=== PATIENT | female | born 1995 | race Caucasian/White ===

== ENCOUNTER 2018-06-21 16:36 | Observation (INO) | payer MEDICAID ==
[~2018-06-21] VITALS: Ht 165.1 cm; Wt 73.0 kg
[2018-06-21] MEDS ORDERED: FERR325T6 PO (17:14)
[2018-06-21] MEDS ORDERED: FOLI-43 PO (17:14)
[2018-06-21] MEDS ORDERED: PNV1TABL50 PO (17:14)
[2018-06-21] MEDS ORDERED: LACTATED RINGERS 1,000 ML IV SCH (17:49)
== END 2018-06-21 19:10 | disposition home or self-care (01) ==
LOC: 8 EST LDRP 16:36
PROVIDERS: ADMIT Obstetrics & Gynecology; ATTEND Obstetrics & Gynecology
DX: O26.893 Other specified pregnancy related conditions, third trimester (principal); R10.30 Lower abdominal pain, unspecified; Z3A.38 38 weeks gestation of pregnancy
CPT/HCPCS: G0378 ×2

== ENCOUNTER 2018-06-21 23:14 | Inpatient (IN) | payer MEDICAID ==
[~2018-06-21] VITALS: Ht 165.1 cm; Wt 73.0 kg
[~2018-06-21 23:14] MED LIST: FERR325T6 PO; FOLI-43 PO; PNV1TABL50 PO
[2018-06-22] MEDS: DEXT 5%/LACTATED RINGERS 1,000 ML IV SCH ×4 (00:01→09:40)
[2018-06-22] MEDS ORDERED: PENICILLIN G POTASSIUM 5MMU in DEXTROSE 5% WATER 100ML IV NR (00:30)
[2018-06-22] MEDS: BUTORPHANOL TARTRATE 2 MG/ML VIAL IV PRN ×3 (00:31→06:46)
[2018-06-22 01:55] LABS: BASOPHILS % 0.4 % (0.0-2.0); EOSINOPHILS % 0.3 % (0.0-5.0); HEMATOCRIT. 33.6 % (36.0-48.0); HEMOGLOBIN. 11.6 g/dL (12.0-16.0); LYMPHOCYTES % 14.3 % (20.0-50.0); MEAN CORPUSCULAR HEMOGLOBIN 28.5 pg (28.0-32.0); MEAN CORPUSCULAR VOLUME 82.7 fL (81.0-99.0); MEAN PLATELET VOLUME 10.3 fl (7.4-10.4); MONOCYTES % 6.5 % (2.0-8.0); NEUTROPHILS % 78.5 % (40.0-76.0); PLATELET 214 x1000/uL (130-400); RED BLOOD CELL COUNT 4.06 mill/uL (4.2-5.4); RED CELL DISTRIBUTION WIDTH 13.6 % (11.6-14.6)
[2018-06-22 02:04] LABS: INR 0.9; PARTIAL THROMBOPLASTIN TIME 25.7 sec (23.4-31.0)
[2018-06-22 02:29] LABS: PROTHROMBIN TIME 8.9 sec (9.1-11.1)
[2018-06-22 03:23] LABS: CLARITY URINE CLOUDY (CLEAR); COLOR URINE YELLOW (YELLOW); KETONES URINE NEGATIVE (NEGATIVE); LEUKOCYTE ESTERASE URINE NEGATIVE (NEGATIVE); NITRITE URINE NEGATIVE (NEGATIVE); OCCULT BLOOD URINE NEGATIVE (NEGATIVE); PH URINE 8.5 (4.5-8.0); PROTEIN URINE NEGATIVE (NEGATIVE); SPECIFIC GRAVITY URINE 1.015 (1.005-1.030); UROBILINOGEN URINE 0.2 E.U./dL (0.2-1.0)
[2018-06-22 03:42] LABS: *AMPHETAMINES SCREEN URINE NEGATIVE (NEGATIVE); *BARBITURATES SCREEN URINE NEGATIVE (NEGATIVE); *BENZODIAZEPINES SCREEN URINE NEGATIVE (NEGATIVE); *COCAINE SCREEN URINE NEGATIVE (NEGATIVE)
[2018-06-22 03:43] LABS: CANNABINOID URINE SCREEN NEGATIVE (NEGATIVE); METHADONE URINE SCREEN NEGATIVE (NEGATIVE); OPIATES URINE SCREEN NEGATIVE (NEGATIVE); PHENCYCLIDINE URINE SCREEN NEGATIVE (NEGATIVE)
[2018-06-22] MEDS: PENICILLIN G POTASSIUM 2.5 MMU in DEXTROSE 5% WATER 50 ML IV SCH ×3 (04:44→14:18)
[2018-06-22 06:31] LABS: HEPATITIS B SURFACE ANTIGEN NEGATIVE
[2018-06-22] MEDS ORDERED: NALOXONE HCL 0.4 MG/ML 1ML VIAL IM PRN (07:00)
[2018-06-22] MEDS ORDERED: LIDOCAINE HCL 1% 20ML VIAL (Pyxis) INJ INFIL SCH (07:00)
[2018-06-22] MEDS ORDERED: METHYLERGONOVINE MALEATE 0.2 MG/ML IM PRN (07:00)
[2018-06-22] MEDS: DEXT 5%/LR + PITOCIN 20UNITS/L 1,000 ML IV SCH ×2 (07:16→19:50)
[2018-06-22] MEDS ORDERED: BUPIVACAINE HCL/NS/PF EPIDURAL 100 ML EP ONE (08:47)
[2018-06-22] MEDS ORDERED: LACTATED RINGERS 1,000 ML IV SCH (09:45)
[2018-06-22] MEDS ORDERED: ACETAMINOPHEN 500MG TABLET PO PRN (15:30)
[2018-06-22] MEDS ORDERED: DEXT 5%/LR + PITOCIN 20UNITS/L 1,000 ML IV SCH (18:57)
[2018-06-22] MEDS ORDERED: ACETAMINOPHEN WITH CODEINE 300/30MG TABLET PO PRN ×2 (19:00)
[2018-06-22] MEDS ORDERED: IBUPROFEN 400MG TABLET PO PRN (19:00)
[2018-06-22] MEDS ORDERED: BISACODYL 10MG SUPP PR PRN (19:00)
[2018-06-22] MEDS ORDERED: HEMORRHOIDAL SUPP PR PRN (19:00)
[2018-06-22] MEDS ORDERED: BENZOCAINE/LANOLIN/ALOE VERA SPRAY TOP PRN (19:00)
[2018-06-22 20:50] VITALS: BP 116/80
[2018-06-22] MEDS: MAGNESIUM/ALUMINUM HYDROXIDE/SIMETHICONE 30ML UDC PO SCH (21:00)
[2018-06-22] MEDS: SIMETHICONE 80MG TABLET CHEW PO SCH (21:00)
[2018-06-22 21:20] VITALS: BP 118/82
[2018-06-22 21:40] VITALS: BP 116/80
[2018-06-23 07:07] LABS: BASOPHILS % 0.3 % (0.0-2.0); EOSINOPHILS % 0.9 % (0.0-5.0); HEMATOCRIT. 25.6 % (36.0-48.0); HEMOGLOBIN. 8.6 g/dL (12.0-16.0); MEAN CORPUSCULAR HEMOGLOBIN 28.1 pg (28.0-32.0); MEAN CORPUSCULAR VOLUME 83.7 fL (81.0-99.0); MEAN PLATELET VOLUME 9.4 fl (7.4-10.4); MONOCYTES % 6.7 % (2.0-8.0); NEUTROPHILS % 76.1 % (40.0-76.0); PLATELET 157 x1000/uL (130-400); RED BLOOD CELL COUNT 3.07 mill/uL (4.2-5.4); RED CELL DISTRIBUTION WIDTH 14.1 % (11.6-14.6)
[2018-06-23 09:00] VITALS: BP 110/60
[2018-06-23] MEDS: SIMETHICONE 80MG TABLET CHEW PO SCH ×4 (09:20→21:17)
[2018-06-23] MEDS: FERROUS SULFATE 325MG TABLET PO SCH ×3 (09:20→18:06)
[2018-06-23] MEDS: MAGNESIUM/ALUMINUM HYDROXIDE/SIMETHICONE 30ML UDC PO SCH ×3 (12:30→21:17)
[2018-06-23 19:30] VITALS: BP 114/71
[2018-06-23 23:30] VITALS: BP 112/70
[2018-06-24 08:15] VITALS: BP 102/63
[2018-06-24] MEDS: SIMETHICONE 80MG TABLET CHEW PO SCH (10:01)
[2018-06-24] MEDS: FERROUS SULFATE 325MG TABLET PO SCH (10:01)
== END 2018-06-24 12:45 | disposition home or self-care (01) | DRG 560 ==
LOC: OBSVTOIN 23:14 → 8 EST LDRP 23:14 → 8EST 06-22 21:00
PROVIDERS: ADMIT Obstetrics & Gynecology; ATTEND Obstetrics & Gynecology
PROC: 10E0XZZ Delivery of Products of Conception, External Approach (ICD-10-PCS; principal; 2018-06-22)
DX: O48.0 Post-term pregnancy (principal); Z37.0 Single live birth; Z3A.40 40 weeks gestation of pregnancy
CPT/HCPCS: 36415; 80305; 86592; 86762; 86850; 86900; 87340; 99281; J0595; J2540; J2590; J3490; J7060; J7121

== ENCOUNTER 2019-06-17 21:38 | Inpatient (IN) | payer MEDICAID ==
[~2019-06-17] VITALS: Ht 165.1 cm; Wt 74.8 kg
[2019-06-17] MEDS ORDERED: DEXT 5%/LR + PITOCIN 20UNITS/L 1,000 ML IV SCH (23:18)
[2019-06-17] MEDS ORDERED: DEXT 5%/LACTATED RINGERS 1,000 ML IV SCH (23:18)
[2019-06-17] MEDS ORDERED: BUTORPHANOL TARTRATE 2 MG/ML VIAL IV PRN (23:30)
[2019-06-17] MEDS ORDERED: NALOXONE HCL 0.4 MG/ML 1ML VIAL IM PRN (23:30)
[2019-06-17] MEDS ORDERED: MINERAL OIL 30ML BOTTLE PR NR (23:30)
[2019-06-17] MEDS ORDERED: METHYLERGONOVINE MALEATE 0.2 MG/ML IM PRN (23:30)
[2019-06-17 23:49] LABS: BASOPHILS % 0.3 % (0.0-2.0); EOSINOPHILS % 1.1 % (0.0-5.0); HEMATOCRIT. 35.6 % (36.0-48.0); HEMOGLOBIN. 12.1 g/dL (12.0-16.0); LYMPHOCYTES % 18.1 % (20.0-50.0); MEAN CORPUSCULAR HEMOGLOBIN 27.8 pg (28.0-32.0); MEAN CORPUSCULAR VOLUME 81.7 fL (81.0-99.0); MEAN PLATELET VOLUME 8.6 fl (7.4-10.4); MONOCYTES % 8.5 % (2.0-8.0); PLATELET 226 x1000/uL (130-400); RED BLOOD CELL COUNT 4.35 mill/uL (4.2-5.4); RED CELL DISTRIBUTION WIDTH 14.1 % (11.6-14.6)
[2019-06-17 23:54] LABS: INR 0.9; PARTIAL THROMBOPLASTIN TIME 26.2 sec (23.4-31.0)
[2019-06-17 23:57] LABS: CLARITY URINE CLEAR (CLEAR); COLOR URINE YELLOW (YELLOW); KETONES URINE NEGATIVE (NEGATIVE); LEUKOCYTE ESTERASE URINE NEGATIVE (NEGATIVE); NITRITE URINE NEGATIVE (NEGATIVE); OCCULT BLOOD URINE NEGATIVE (NEGATIVE); PH URINE 7.5 (4.5-8.0); PROTEIN URINE NEGATIVE (NEGATIVE); SPECIFIC GRAVITY URINE 1.008 (1.005-1.030); UROBILINOGEN URINE 0.2 E.U./dL (0.2-1.0)
[2019-06-18] MEDS ORDERED: PENICILLIN G POTASSIUM 5 MMU in DEXT 5% WATER 100 ML IV SCH ×2
[2019-06-18 00:10] LABS: *BENZODIAZEPINES SCREEN URINE NEGATIVE (NEGATIVE); *COCAINE SCREEN URINE NEGATIVE (NEGATIVE); METHADONE URINE SCREEN NEGATIVE (NEGATIVE); OPIATES URINE SCREEN NEGATIVE (NEGATIVE)
[2019-06-18 00:11] LABS: *AMPHETAMINES SCREEN URINE NEGATIVE (NEGATIVE); *BARBITURATES SCREEN URINE NEGATIVE (NEGATIVE); CANNABINOID URINE SCREEN NEGATIVE (NEGATIVE); PHENCYCLIDINE URINE SCREEN NEGATIVE (NEGATIVE)
[2019-06-18 00:28] LABS: HEPATITIS B SURFACE ANTIGEN NEGATIVE
[2019-06-18] MEDS ORDERED: IBUPROFEN 800MG TABLET PO PRN (01:30)
[2019-06-18] MEDS ORDERED: IBUPROFEN 400MG TABLET PO PRN (01:30)
[2019-06-18] MEDS ORDERED: LANOLIN OINT 7GM TUBE TOP PRN (01:30)
[2019-06-18] MEDS ORDERED: RHO(D) IMMUNE GLOBULIN 300 MCG/SYR IM PRN (01:30)
[2019-06-18] MEDS ORDERED: DIPHENHYDRAMINE 25MG CAPSULE PO PRN (01:30)
[2019-06-18] MEDS ORDERED: DEXT 5%/LR + PITOCIN 20UNITS/L 1,000 ML IV SCH (01:30)
[2019-06-18 03:45] VITALS: BP 108/56
[2019-06-18 04:00] VITALS: BP 109/59
[2019-06-18] MEDS ORDERED: PENICILLIN G POTASSIUM 2.5 MMU in DEXTROSE 5% WATER 50 ML IV SCH (04:00)
[2019-06-18 07:36] VITALS: BP 95/50
[2019-06-18] MEDS ORDERED: PRENATAL VIT/FE FUMARATE/FA TABLET PO SCH (09:00)
[2019-06-18 15:50] VITALS: BP 107/62
[2019-06-18 22:00] VITALS: BP 107/60
[2019-06-19] MEDS ORDERED: METHYLERGONOVINE MALEATE 0.2 MG/ML IM PRN (01:30)
[2019-06-19 06:00] VITALS: BP 103/55
[2019-06-19] MEDS ORDERED: FERR325T6 MT (07:19)
[2019-06-19] MEDS ORDERED: MULT1TAB67 MT (07:19)
[2019-06-19] MEDS ORDERED: IBUP-2029 MT (07:19)
[2019-06-19 07:30] VITALS: BP 98/51
[2019-06-19 07:46] LABS: BASOPHILS % 0.6 % (0.0-2.0); HEMATOCRIT. 29.3 % (36.0-48.0); HEMOGLOBIN. 10.1 g/dL (12.0-16.0); LYMPHOCYTES % 29.7 % (20.0-50.0); MEAN CORPUSCULAR HEMOGLOBIN 28.5 pg (28.0-32.0); MEAN CORPUSCULAR VOLUME 82.7 fL (81.0-99.0); NEUTROPHILS % 58.7 % (40.0-76.0); PLATELET 204 x1000/uL (130-400); RED BLOOD CELL COUNT 3.54 mill/uL (4.2-5.4); RED CELL DISTRIBUTION WIDTH 14.1 % (11.6-14.6)
== END 2019-06-19 13:40 | disposition home or self-care (01) | DRG 560 ==
LOC: OBSVTOIN 21:38 → 8 EST LDRP 21:38 → 8EST 06-18 05:00
PROVIDERS: ADMIT Obstetrics & Gynecology; ATTEND Obstetrics & Gynecology
PROC: 10E0XZZ Delivery of Products of Conception, External Approach (ICD-10-PCS; principal; 2019-06-18)
DX: O69.81X0 Labor and delivery complicated by cord around neck, without compression, not applicable or unspecified (principal); O71.4 Obstetric high vaginal laceration alone; Z3A.38 38 weeks gestation of pregnancy; Z37.0 Single live birth
CPT/HCPCS: 36415; 80305; 81003; 85025; 86592; 86703; 86762; 86850; 86900; 87340; 99281; G0378; J0595; J2540; J2590; J7060